=== PATIENT | female | born 1940 | race Caucasian/White ===

== ENCOUNTER → 2020-10-29 09:05 | Outpatient (CLI) | payer MEDICARE, OTHER, SELFPAY ==
[2020-10-29 12:02] LABS: COVID19 -Nasal RAPID Negative (Negative)
== END ==
PROVIDERS: PCP Nurse Practitioner; Visit Provider Physician Assistant
DX: Z01.812 Encounter for preprocedural laboratory examination (principal); Z20.822 Contact with and (suspected) exposure to COVID-19
CPT/HCPCS: 87635; C9803

== ENCOUNTER 2020-10-31 13:09 | Day surgery (SDC) | payer MEDICARE, OTHER, SELFPAY ==
[2020-10-25 12:04] VITALS: BMI 25.5
[2020-10-31] VITALS (14 sets, daily range): BP systolic 118–195; BP diastolic 54–108; PULSE 56–75; RESP 9–18; TEMP 36.1–37.4; O2SAT 96–99; BMI 25.5
--- NOTE | 2020-10-31 06:30 | DI.RAD.S_ITS ---
PROCEDURE: XR KNEE RT 1TO2V INDICATIONS: post op UKA TECHNIQUE: 2 views of the knee were acquired. COMPARISON: None. FINDINGS: Bones: Expected postoperative alignment of unicompartmental medial arthroplasty. Hardware appears intact. No acute fracture. Soft tissues: Postsurgical soft tissue changes. IMPRESSION: Expected postoperative appearance Dictated by: Félix Oliveira M.D. on 10/31/2020 at 16:55 Approved by: Félix Oliveira M.D. on 10/31/2020 at 16:55
[2020-10-31] MEDS: LACTATED RINGERS 1,000 ML 42 ML IV ×2 (13:29→15:29)
--- NOTE | 2020-10-31 13:52 | PM.PREOP ---
Pre-operative Note COVID-19 COVID-19 status: Negative Result date/Date tested (Pos, Neg/Pending): 10/29/20 Interval Note History & Physical reviewed/Exam performed by Physician: Yes Changes to H&P: No
--- NOTE | 2020-10-31 13:52 | PM.OP.1 ---
Operative Date/Time/Diagnoses Date of procedure: 10/31/20 Time of procedure: 15:44 Pre-op diagnosis: Right knee osteoarthritis Post-op diagnosis: same Procedure & Clinicians Procedure: Right knee medial compartment unicompartmental arthroplasty Same procedure as scheduled: Yes Indications: The patient has had progressively worsening right knee pain with radiographic changes consistent with unicompartmental arthritis. Non-operative management has failed and the patient has requested partial l knee replacement. The risks, benefits and alternatives to surgery were discussed with the patient prior to proceeding. Risks discussed included, but were not limited to, failure to relieve pain, stiffness, infection, nerve damage, deep venous thrombosis, pulmonary embolism, stroke, coma, heart attack, permanent paralysis and , as well as the potential need for eventual revision of the prosthetic. Surgeon: Maikol Ovalles Transit Planning Manager: Santos Hallman Click Yes if Unassisted: No Anesthesia Type: General and Local Operative Notes Findings: End-stage medial osteoarthritis Closure Type: primary Specimen(s): none sent Prosthetic devices, grafts, tissues, transplants, or devices: Implants used in this procedure were manufactured by the [employer] and included the Journey II medial knee replacement with a size 5 right medial femoral component, a size 4 right medial tibial base plate and a 9 mm tibial insert. Applied: implant(s) Estimated Blood Loss (mL): 25 Blood products transfused: none Tourniquet time (min): 40 Procedure in detail: The patient was seen in the pre-operative area, where the patient identified the right knee as the operative site and this was marked with my initials. The patient received pre-operative antibiotics, and was taken to the operating room and placed on the operative table in the supine position. After satisfactory anesthesia, a lead manufacturing technician out was performed. The right leg was encircled with a tourniquet about the proximal thigh, and the leg was prepared from the toes to the tourniquet with ChloroPrep in the usual fashion and draped through sterile drapes. The leg was elevated and exsanguinated with Eschmark bandage and the tourniquet inflated to 250 mmHg pressure. The knee was approached through an approximately 10 cm incision centered medial to the patellar tendon and carried into the knee through a midvastus approach. The anterior osteophytes and soft tissues were removed. The proximal tibial cut was made with the extramedullary guide. The distal femoral cut was then made. The extension and flexion gaps were checked with the gap balancing blocks. The posterior and chamfer cuts were then made, and the lug holes drilled through the guide. The posterior osteophytes and soft tissues were then removed. The posterior capsule was injected with part of a mixture of 30 ml 0.25% Marcaine mixed with 20 ml Exparel and 4 mg of morphine for post-operative pain control. The remainder of this mixture was injected into the capsule and subcutaneous tissues during cement curing. Trial tibial and femoral components were then placed. Range of motion was 0-140 degrees, with good stability throughout the range. The trials were then removed. The bone was prepared with pulsatile lavage, and dried with a sponge. Cement was applied and the final prosthetics placed. Excess cement was removed during and after cement curing. After confirming there was no extruded cement posteriorly, the final tibial insert was placed. The knee was copiously irrigated and the tourniquet deflated. Hemostasis was obtained. The capsule was closed with interrupted # 2 polyester suture and 0 Vicryl in the muscular extension. The subcutaneous layer was closed with 3-0 Vicryl, and the skin with a running 3-0 V-Lock suture and Dermabond. An Aquacel Ag dressing was applied and the patient was taken to recovery having tolerated the procedure well. Complications: none Post-operative Condition: stable Disposition: PACU Plan for aftercare: The patient will be discharged 1st thing tomorrow morning. Surgery occurred late in the afternoon and discharge this evening would be inappropriate given the patient's age and the age of her caregiver. She will be observed overnight for pain control.
[2020-10-31] MEDS: PREGABALIN 75 MG CAPSULE PO (14:08)
[2020-10-31] MEDS: CELECOXIB 200 MG CAPSULE PO (14:09)
[2020-10-31] MEDS: ACETAMINOPHEN 325 MG TABLET 975 MG PO (14:09)
[2020-10-31] MEDS: TRANEXAMIC ACID 1,000 MG VIAL 1000 MG INJ ×2 (14:20→15:32)
[2020-10-31] MEDS: CEFAZOLIN 1 GM VIAL 2 GM IV (14:25)
--- NOTE | 2020-10-31 14:42 | SUR.OPER ---
Supine on padded OR bed. Pillow under head, arms secured on padded armboards <90 degree abduction. Safety belt across torso. Non-operative leg secured with tape over blanket over lower leg. Operative leg secured in DeMayo/Karri/Nathe positioner. Foam padded brace at thigh of operative leg.
[2020-10-31] MEDS: MORPHINE 4 MG/ML INJ INJ (14:50)
[2020-10-31] MEDS: BUPIVACAINE 0.25% W/ EPI 30 ML VIAL INJ (14:50)
[2020-10-31] MEDS: BUPIVACAINE LIPOSOME 266 MG/20 ML VIAL INJ (14:50)
[2020-10-31] MEDS: HYDROMORPHONE 2 MG INJ IV ×2 (15:54→16:12)
[2020-10-31] MEDS: ONDANSETRON 4 MG/2 ML INJ IV (15:54)
[2020-10-31] MEDS: fentaNYL 100 MCG/2 ML INJ IV (16:05)
[2020-10-31] MEDS: OXYCODONE/ACETAMINOPHEN 5/325 TABLET 1 TAB PO (16:33)
[2020-10-31] MEDS: IBUPROFEN 400 MG TABLET PO ×2 (18:14→21:27)
[2020-10-31] MEDS: OXYCODONE IR 10 MG TABLET PO (18:14)
[2020-10-31] MEDS: LACTATED RINGERS 1,000 ML 100 ML IV (18:15)
[2020-10-31] MEDS: METOPROLOL IR 50 MG TABLET 25 MG PO (21:27)
[2020-10-31] MEDS: ATORVASTATIN 20 MG TABLET PO (21:27)
[2020-10-31] MEDS: LOSARTAN 25 MG TABLET PO (21:27)
[2020-10-31] MEDS: DOCUSATE 100 MG CAPSULE PO (21:28)
[2020-10-31] MEDS: ACETAMINOPHEN 325 MG TABLET 650 MG PO (21:28)
[2020-10-31] MEDS: ASPIRIN EC 81 MG TABLET PO (21:28)
[2020-11-01] MEDS: IBUPROFEN 400 MG TABLET PO ×4 (00:43→13:41)
[2020-11-01 01:35] VITALS: O2SAT 98
--- NOTE | 2020-11-01 01:35 | PC.NURSE ---
Addendum entered by Idalia Pelayo R.N. 11/01/20 03:58: Patient taken off O2 at 0355. Pulse Oxygen Saturation was 99 on 1L. Patient is on continuous monitoring and monitor and titrate as needed. Addendum entered by Idalia Pelayo R.N. 11/01/20 01:38: Assessment and O2 change at 0030 not 0130. Original Note: Patient was starting to feel nauseous with some dry heaving after taking her 0100 Ibuprofen dose. Patient was sitting up in bed and this RN brought her some gingerale and crackers. Patient was on 2L NC O2 at the start of shift but at assessment at 0130, her O2 saturation was at 99% so this RN took her O2 down to 1L. Patient is holding steady at 98% on 1L, will continue to monitor and titrate.
[2020-11-01 03:37] VITALS: BP 103/52; PULSE 51; RESP 16; TEMP 36.1; O2SAT 99
[2020-11-01] MEDS: LACTATED RINGERS 1,000 ML 100 ML IV (03:54)
[2020-11-01 03:55] VITALS: O2SAT 99
[2020-11-01 05:47] LABS: Hematocrit 38.1 % (36-46); Hemoglobin 12.6 g/dL (12.0-16.0)
--- NOTE | 2020-11-01 07:29 | P.DS_ITS ---
History of Present Illness History of Present Illness Date Patient Seen: 11/01/20 Time Patient Seen: 07:29 Chief complaint: RIGHT KNEE Narrative: The history and physical is contained in the chart previously completed note. Please refer to that note for this information. Discharge Providers Provider Date of admission: October 31, 2020 Discharge Date: 11/01/20 Primary care physician: PAMELLA Martinez Consults: 10/31/20 17:04 Consult to Discharge Planning Routine Comment: Consult to Physical Therapy Evaluate & Treat Comment: Physician Instructions: postop TKA protocol Consult to Respiratory Therapy Evaluate & Treat Comment: Physician Instructions: Evaluate and treat Discharge provider: Maikol Ovalles MD Summary Hospital Course Discharge Diagnosis: Right knee osteoarthritis Hospital Course: The patient was admitted to the hospital and taken directly to the operating room on October 31, 2020. She underwent a right knee medial unicompartmental arthroplasty for osteoarthritis. She tolerated this well however the surgery was performed late in the afternoon and the patient is elderly with an adapted physical education teacher so she was kept in the hospital overnight to allow discharge in the morning. She was comfortable overnight. At the time of this dictation she has not yet ambulated but it is anticipated she will do so with physical therapy this morning. Status at Discharge Cognitive/behavioral status at discharge: oriented Functional status at discharge: uses cane/walker Overall status at discharge: patient is progressing back to baseline Time Spent with Patient Time spent: Less than 30 minutes Exam Vital Signs (past 8 hours): - 11/01/20 01:35 11/01/20 03:37 11/01/20 03:55 Temperature 97.0 F L Pulse Rate 51 L Respiratory Rate 16 Blood Pressure 103/52 L Pulse Oximetry 98 99 99 Oxygen Delivery Method Nasal Cannula Oxygen Flow Rate 0 Narrative Exam Narrative: Right knee wound is dressed with no drainage on the bandage. Calf is soft. Light touch and motion are intact in the right lower extremity. Objective Labs Result Diagrams: 11/01/20 05:30 Labs: Laboratory Results - last 24 hr 11/01/20 05:30 Hgb 12.6 Hct 38.1 PFSH Social History household members: spouse Smoking Status: Never smoker alcohol intake: current Discharge Assessment & Plan Assessment and Plan Assessment: The patient is stable postoperative day 1 status post right medial unicompartmen tez arthroplasty. Plan of Treatment: Discharged home today after physical therapy this morning. Follow-up at my office in 2 weeks. Discharge prescription for oxycodone has been called in to [facility]. She will be instructed in the use of ibuprofen and Tylenol for pain control and the use of low-dose aspirin for DVT prophylaxis. Discharge Plan Discharge Plan Patient Disposition: Home Discharge orders & Medications Discharge Orders: Discharge (Order); Ordered 11/01/20 Ordered By: Maikol Ovalles Prescriptions: New acetaminophen 325 mg Tablet 650 mg PO TID 30 Days Qty: 180 RF: 0 aspirin 81 mg Tablet,Delayed Release (Dr/Ec) 81 mg PO BID 42 Days Qty: 84 RF: 0 ibuprofen 400 mg Tablet 400 mg PO Q4HR 30 Days RF: 0 oxycodone 5 mg Tablet 5 mg PO Q4H PRN (Reason: Pain, Moderate (4-6)) Qty: 40 RF: 0 Continued sertraline 100 mg tablet 50 mg PO DAILY RF: 0 simvastatin 40 mg tablet 40 mg PO BEDTIME RF: 0 levothyroxine 75 mcg tablet 75 mcg PO DAILY RF: 0 losartan 25 mg tablet 25 mg PO BID RF: 0 metoprolol tartrate 50 mg tablet 25 mg PO BID RF: 0 Follow up/Referrals: Chantelle Thomas ARNP [Primary Care Provider] - Maikol Ovalles MD [Physician] - 2 Weeks Diet/Activity/Treatments Diet: Diet as Tolerated and Regular Activity: You may bear weight as tolerated on your right leg. Cold/Heat Therapy: Apply ice for 15 minutes every hour as needed to the right knee for pain control. Skin/Wound/Dressing Care Report to your healthcare provider any signs of infection, such as:: chills, fever, night sweats, increased pain, unusual drainage and unusual redness Dressing: You may remove the Bo wrap 3 days after surgery and shower normally. Leave the deeper dressing in place until follow-up. If the central strip of the deeper dressing becomes saturated with either water or blood, please call the office to have it evaluated. Visit Report/Discharge Packet Instructions: DI for Knee Replacement Stand Alone Forms: Surgery Discharge Discharge Data Primary Care Provider: Chantelle Thomas Attending Provider: Maikol Ovalles Quality VTE Deep Vein Thrombosis/Pulmonary Embolism Present on Admission: No
[2020-11-01 07:45] VITALS: BP 116/62; PULSE 71; RESP 17; TEMP 36.5; O2SAT 93
[2020-11-01 09:01] VITALS: BP 131/56; PULSE 60
[2020-11-01] MEDS: ASPIRIN EC 81 MG TABLET PO (09:01)
[2020-11-01] MEDS: LOSARTAN 25 MG TABLET PO (09:01)
[2020-11-01] MEDS: DOCUSATE 100 MG CAPSULE PO (09:02)
[2020-11-01] MEDS: ACETAMINOPHEN 325 MG TABLET 650 MG PO (09:02)
[2020-11-01] MEDS: LEVOTHYROXINE 75 MCG TABLET PO (09:02)
[2020-11-01] MEDS: SERTRALINE 50 MG TABLET PO (09:02)
--- NOTE | 2020-11-01 09:15 | PT.IIE ---
Current Diagnoses Unilateral primary osteoarthritis, right knee (10/31/20) Surgery Performed Operation Date: 10/31/20 15:15 Actual Procedures p Arthroplasty of medial condyle & plateau of knee(Right) - Maikol Ovalles MD Physical Therapy Inpatient Evaluation/Re-Eval M1 PT/OT-IP Prior Functional Status Start: 11/01/20 12:37 Freq: NEEDED Status: Active Protocol: Document 11/01/20 09:15 AB (Rec: 11/01/20 12:54 AB [id number]) Medical Review Prior Functional Status Medical History Reviewed Yes Communication able to make needs known but with confusion Mobility and Gait pt stated that she is independent with all mobilities and ambulation without AD Social History Household Members spouse Living Arrangements House Number of Floors (Floors) One Floor Number of Stairs To Enter/Railing? 1 step to enter Home Environment High Toilet,Walk in Shower Home Equipment Front Wheel Walker,Four Wheel Walker,Straight Cane,Shower Seat with Backrest,Hand Held Shower,Grab Bars In Shower M2 PT-IP Current Condition Start: 11/01/20 12:37 Freq: NEEDED Status: Active Protocol: Document 11/01/20 09:15 AB (Rec: 11/01/20 12:54 AB [id number]) Physical Therapy Current Condition Current Condition Evaluation Date 11/01/20 Treatment Diagnosis s/p R uni knee; difficulty in walking Onset Date 10/31/20 Weight Bearing Status Weight Bearing Status Weight Bear as Tolerated Allowed Weight Bearing Amount (enter % RLE WBAT or #) (%) M3 PT-IP Subjective Start: 11/01/20 12:37 Freq: NEEDED Status: Active Protocol: Document 11/01/20 09:15 AB (Rec: 11/01/20 12:54 AB [id number]) Subjective Physical Therapy Visit Type Type Initial Evaluation Visit Start Time 09:15 Visit Stop Time 10:18 Total Visit Minutes 63 Number of TOP TRIMMER Visits 0 Physical Therapy Visit Comments Patient Comments pt is agreeable to do PT Therapy Pain Assessment Pain When Pain Assessed At Rest Pain Present Pain Present Pain Reported Location right knee Intensity 2 Scale Used Numeric (0 - 10) Pain Management Techniques Apply Cold,Modification of Treatment,Re-positioning, Timing of Activity with Medications M4 PT-IP Mobility and Gait Start: 11/01/20 12:37 Freq: NEEDED Status: Active Protocol: Document 11/01/20 09:15 AB (Rec: 11/01/20 12:54 AB [id number]) PT-Bed Mobility Assessment Supine to Sit Supine to Sit Standby Assistance Sit to Supine Sit to Supine Standby Assistance PT-Transfer Assessment Sit to and From Stand Sit to and from Stand Standby Assistance,1 Person Assistance,Use of Upper Extremities Equipment Transfer Assistive Device Gait Belt,Front Wheeled Walker Orthotic/Prosthetic Devices or Brace: No Transfers Transfer Destination Bed,Chair Transfer Technique Stand Step Pivot Transfer Ability Level of Assist Standby Assistance,1 Person Assistance,Use of Upper Extremities Comments Mobility Comments pt sitting on chair and agreeable to do PT. completed sit to stand SBA and step transfer using FWW to the bed SBA. completed sit<>supine SBA. pt with confusion and requires cues with all tasks. completed sit <>supine x 3 sets and cues for techniques. pt ambulated in room ~ 40 ft using FWW SBA to CGA and cues for safety. pt tends to pull on FWW for sit to stand. cued for safety but with decrease carryover. pt ambulated in the hallway 75 ft using FWW SBA to CGA. completed up/down platform step x 4 reps using fWW CGA to min A and max cues for safety and technique. pt with confusion affecting safety awareness. pt ambulated agan ~ 40 ft and completed up/down steps again using FWW but continues to require cues. pt stated that she wants to stay up on the chair. pt ambulated in the room and instructed to walk to the chair and sit. pt with decrease safety awareness and memory issues and took ~2-3 minutes to figure out how to sit on the chair: did a 360 turn and was going towards the bed instead of the chair to sit. when PT asked, pt stated that she is going towards the chair. positioned pt on the chair. call light and table placed within reach. informed pt to call her spouse for caregiver training at 1 pm today. Gait Assessment Gait Gait Assistance Required: Standby Assistance,Contact Guard Assist,1 Person Assist Distance (Feet) 75 Able to Maintain Weight Bearing Status Yes During Gait Assistive Devices Assistive Device Gait Belt,Front Wheeled Walker Orthotic/Prosthetic Devices or Brace: No Factors Limiting Gait Function Factors Limiting Gait Function Decreased Activity Tolerance, Decreased Strength,Limited Range of Motion,Pain,Poor Balance,Poor Safety Awareness Stair Climbing Assessment Evaluation Level of Assist On Stairs Contact Guard Assistance, Minimal Assistance Devices Stair Climbing Assistive Devices Front Wheel Walker Technique/Endurance Stair Climbing Direction Ascend and Descend Stair Climbing Technique Step to Step Number of Steps Climbed 1 Query Text: Stair Climbing Set # Repetitions (reps) 6 PT-Balance Assessment Sitting Balance and Reactions Static Sitting Balance Ability Good Dynamic Sitting Balance Ability Good Standing Balance and Reactions Static Standing Balance Ability Fair Dynamic Standing Balance Ability Fair Device Used FWW M5 PT-IP Objective Assessments Start: 11/01/20 12:37 Freq: NEEDED Status: Active Protocol: Document 11/01/20 09:15 AB (Rec: 11/01/20 12:54 AB [id number]) Orientation Orientation/Cognition Level of Alertness Alert Orientation Name,Place,Situation Language Function Ability Hard of Hearing Safety Awareness Decreased Safety Awareness Memory Description Short Term Impaired Gross Range of Motion Lower Extremity ROM Impairments R knee fleion: ~ 70 deg Strength Lower Extremity Strength Assessment Right Impaired Knee 4-/5 Sensation Assessment Sensation Gross Sensation WNL Muscle Tone Muscle Tone WNL Yes M6 PT-IP Treatment Start: 11/01/20 12:37 Freq: NEEDED Status: Active Protocol: Document 11/01/20 09:15 AB (Rec: 11/01/20 12:54 AB [id number]) Physical Therapy Treatment Exercises Exercises Heel Slides Education Education Provided Precautions,Weight Bearing Status,Post-Op Packet,Safety M7 PT-IP Assessment and Plan Start: 11/01/20 12:37 Freq: NEEDED Status: Active Protocol: Document 11/01/20 09:15 AB (Rec: 11/01/20 12:54 [id number]) PT Summary Assessment and Plan Potential Rehabilitation Potential Good Status of Condition at Evaluation Stable Summary Impairments Pain,ROM,Strength,Balance, Coordination,Sensation,Tone, Cognition,Bed Mobility, Transfers,Gait,Activity Tolerance Assessment Summary pt requiring SBA to min A with mobility using FWW bur requires max cues with all tasks. pt with confusion and memory issues affeding safety and mobililty level. caregiver training set up at 1pm today. will continue to assess progress. Goals Bed Mobility Goal Independent Transfer Goal Independent,Front Wheeled Walker Gait Goal Independent,Front Wheel Walker Gait Distance 200 Other Goals up/down 1 step using fWW SBA Days to Meet Goals 3 Frequency of Treatment Frequency Of Treatment Twice a Day Treatment Plan Physical Therapy Treatment Plan Bed Mobility Training,Transfer Training,Gait Training, Therapeutic Exercise,Balance Retraining,Post Op Education, Discharge Planning,Hot or Cold Pack,Neuromuscular Re-ed, Coordination Retraining,Manual Therapy Precautions Other Precautions RLE WBAT Recommendations To Nursing Amount of Assist Needed 1 Person Assist Discharge Recommendations PT Discharge Recommendations Home with Assistance, Outpatient PT Transportation Needs at Discharge Private Vehicle
[2020-11-01 11:24] VITALS: BP 128/53; PULSE 61; RESP 15; TEMP 36.6; O2SAT 94
--- NOTE | 2020-11-01 13:10 | PT.IPTN ---
Current Diagnoses Unilateral primary osteoarthritis, right knee (10/31/20) Surgery Performed Operation Date: 10/31/20 15:15 Actual Procedures p Arthroplasty of medial condyle & plateau of knee(Right) - Maikol Ovalles MD Physical Therapy Treatment Note M2 PT-IP Current Condition Start: 11/01/20 12:37 Freq: NEEDED Status: Discharge Protocol: Document 11/01/20 09:15 AB (Rec: 11/01/20 12:54 AB [id number]) Physical Therapy Current Condition Current Condition Evaluation Date 11/01/20 Treatment Diagnosis s/p R uni knee; difficulty in walking Onset Date 10/31/20 Weight Bearing Status Weight Bearing Status Weight Bear as Tolerated Allowed Weight Bearing Amount (enter % RLE WBAT or #) (%) M3 PT-IP Subjective Start: 11/01/20 12:37 Freq: NEEDED Status: Discharge Protocol: Document 11/01/20 13:10 AB (Rec: 11/01/20 14:20 AB [id number]) Subjective Physical Therapy Visit Type Type Treatment Note Visit Start Time 13:10 Visit Stop Time 13:37 Total Visit Minutes 27 Number of LOSS PREVENTION LEAD Visits 0 Physical Therapy Visit Comments Patient Comments agreed to do PT; spouse in room M4 PT-IP Mobility and Gait Start: 11/01/20 12:37 Freq: NEEDED Status: Discharge Protocol: Document 11/01/20 13:10 AB (Rec: 11/01/20 14:20 AB [id number]) PT-Bed Mobility Assessment Supine to Sit Supine to Sit Standby Assistance Sit to Supine Sit to Supine Standby Assistance PT-Transfer Assessment Sit to and From Stand Sit to and from Stand Standby Assistance,1 Person Assistance Equipment Transfer Assistive Device Gait Belt,Front Wheeled Walker Orthotic/Prosthetic Devices or Brace: No Transfers Transfer Destination Bed,Chair Transfer Technique Stand Step Pivot Transfer Ability Level of Assist Standby Assistance,1 Person Assistance,Use of Upper Extremities Comments Mobility Comments spouse in room for training. conducted caregiver training and educated spouse on how to assist pt and to provide necessary cues for safety. pt complete sit to stand SBA and completed transfer to bed using FWW SBA. completed sit<> supine SBA and cues provided. initially requiring instruction from PT for spouse to cue and instruct pt but able to cue pt safety towards end of tx session. spouse cued and assisted pt with ambulation out in the hallway using FWW. spouse also assisted pt with up/down platform step CGA x 3 sets. pt ambulated back to the room. spouse was able to provide instructions to pt for sitting on chair. positioned pt on chair. call light and table placed within reach. pt and spouse comfortable with going home and no other concerns. informed nurse. Gait Assessment Gait Gait Assistance Required: Standby Assistance Distance (Feet) 50 Able to Maintain Weight Bearing Status Yes During Gait Assistive Devices Assistive Device Gait Belt,Front Wheeled Walker Orthotic/Prosthetic Devices or Brace: No Gait Deviations General Gait Pattern Antalgic,Decreased Stride Length,Decreased Feet Clearance,Step-to Gait Comments Gait Comments pls refer to mobilty section for details Stair Climbing Assessment Evaluation Level of Assist On Stairs Contact Guard Assistance,1 Person Assistance Devices Stair Climbing Assistive Devices Front Wheel Walker Technique/Endurance Stair Climbing Direction Ascend and Descend Stair Climbing Technique Step to Step Number of Steps Climbed 1 Stair Climbing Set # Repetitions (reps) 6 M5 PT-IP Objective Assessments Start: 11/01/20 12:37 Freq: NEEDED Status: Discharge Protocol: Document 11/01/20 09:15 AB (Rec: 11/01/20 12:54 AB [id number]) Orientation Orientation/Cognition Level of Alertness Alert Orientation Name,Place,Situation Language Function Ability Hard of Hearing Safety Awareness Decreased Safety Awareness Memory Description Short Term Impaired Gross Range of Motion Lower Extremity ROM Impairments R knee fleion: ~ 70 deg Strength Lower Extremity Strength Assessment Right Impaired Knee 4-/5 Sensation Assessment Sensation Gross Sensation WNL Muscle Tone Muscle Tone WNL Yes M6 PT-IP Treatment Start: 11/01/20 12:37 Freq: NEEDED Status: Discharge Protocol: Document 11/01/20 13:10 AB (Rec: 11/01/20 14:20 AB [id number]) Physical Therapy Treatment Education Education Provided Precautions,Safety M7 PT-IP Assessment and Plan Start: 11/01/20 12:37 Freq: NEEDED Status: Discharge Protocol: Document 11/01/20 13:10 AB (Rec: 11/01/20 14:20 AB [id number]) PT Summary Assessment and Plan Potential Rehabilitation Potential Fair Summary Impairments Pain,ROM,Strength,Balance, Coordination,Sensation,Tone, Cognition,Bed Mobility, Transfers,Gait,Activity Tolerance Progress Towards Goals Slow Progress - Other Assessment Summary caregiver training conducted and spouse was able to provide cues and asssitance to pt safely. pt stated that she has outpt PT set up. pt may go home when stable. Goals Bed Mobility Goal Independent Transfer Goal Independent,Front Wheeled Walker Gait Goal Independent,Front Wheel Walker Gait Distance 200 Other Goals up/down 1 step using fWW SBA Days to Meet Goals 3 Frequency of Treatment Frequency Of Treatment Twice a Day Treatment Plan Physical Therapy Treatment Plan Bed Mobility Training,Transfer Training,Gait Training, Therapeutic Exercise,Balance Retraining,Post Op Education, Discharge Planning,Hot or Cold Pack,Neuromuscular Re-ed, Coordination Retraining,Manual Therapy Precautions Other Precautions RLE WBAT Recommendations To Nursing Amount of Assist Needed 1 Person Assist Discharge Recommendations PT Discharge Recommendations Home with Assistance, Outpatient PT Transportation Needs at Discharge Private Vehicle
--- NOTE | 2020-11-01 14:01 | CM.DANOTE ---
Patient discharged to home. All discharge paperwork discussed and given to patient. Education given regarding narcotics and knee replacement. Prescriptions sent to patient's preferred pharmacy.All belongings given to patient. Verbalized understanding of discharge information and denied any further questions.
--- NOTE | 2020-11-01 15:26 | CM.DANOTE ---
DCP/Assessment: Reviewed chart. Patient is a 80yr old female admitted to [facility] for right TKA performed on 10-31-20. PCP is Chantelle Thomas. Primary payor 1)Medicare 2)[facility]. Met with patient explained role. Patient reports that prior to admit she was I in ADL's. Patient has outpatient therapy scheduled in [place]. Patient resides with spouse and plans to d/c home today. Therapy has evaluated and recommend outpatient therapy f/u. P: Home when stable. MICHELLE Ochoa Discharge Planning/Care Management CM Discharge Assessment Start: 11/01/20 15:22 Freq: Status: Active Protocol: Document 11/01/20 15:22 KJS (Rec: 11/01/20 15:26 KJS [id number]) Discharge Planning Assessment Assigned Voice Network Engineer MICHELLE Ochoa Contact Information Magdaleno Alvarado (spouse) # [phone] Advance Directives? Yes Advance Directives on File No History Provided By Patient,Medical Record Prior Living Arrangements House Household Members spouse Type of transporation used prior to Drives own vehicle admit Independent with ADL's Yes Is patient alert and oriented? Yes Caregiver for Another No DME Already Rented / Owned FWW / Walker Patient/Family Preference OP PT Therapy Barriers to Discharge No Discharge Plan Home Transportation Arrangement Family to provide transport. Referrals Initiated None needed Whiteboard Updated in Patient Room with Yes name and ext. # of Voice Network Engineer Review Status In Process Next Review Type Continued Stay Review Pre-Anesthesia Assessment Start: 10/25/20 12:04 Freq: Status: Complete Protocol: Document 10/25/20 12:04 CAB (Rec: 10/25/20 12:09 CAB [id number]) Pre-Anesthesia Assessment PAC Comment Prior medical/medication records not identified. Surgeon H&P not available, unable to complete PAC chart review Patient Information Reviewed Via Chart Review H&P Completed Within 30 Days No Comment COVID screen @ 10/29/20 Primary Care Provider Chantelle Thomas Seen Specialist in Last 12 Months Yes Specialist Seen Orthopedist Primary Language Lao Antique Furniture Reproducer Required No Height 153.67 cm Weight 60.328 kg Body Mass Index (BMI) 25.5 Anesthesia Review Requested No Pain Present Pain Reported Musculoskeletal Symptoms Difficulty Walking,Joint Pain Patient is completely paralyzed or No completely immobile Patient No Lactating No Marital Status Unknown Patient Discharge Plan Description Return Home
== END 2020-11-01 13:55 | disposition home or self-care (01) ==
LOC: OR 13:15 → AC 17:18
PROVIDERS: PCP Nurse Practitioner; Referring Provider Nurse Practitioner; Visit Provider Orthopaedic Surgery
PROC: (CPT 27446; principal; 2020-10-31 15:15)
DX: M17.11 Unilateral primary osteoarthritis, right knee (principal); I10 Essential (primary) hypertension; K21.9 Gastro-esophageal reflux disease without esophagitis
CPT/HCPCS: 27446; 36415; 73560; 85014; 85018; 97116; 97161; 97530; C1776; C9290; J0690; J1100; J1170; J2270; J2405; J2704; J3010